=== PATIENT | female | born 1965 | race Hispanic/Latino ===

== ENCOUNTER 2020-12-10 14:48 | Outpatient (CLI) | payer OTHER | END 2020-12-10 14:49 | disposition home or self-care (01) | LOC: CSHRAD 14:48 | PROVIDERS: ATTEND Family Medicine | DX: M25.562 Pain in left knee (principal) ==

== ENCOUNTER 2024-07-19 11:49 | Outpatient (CLI) | payer OTHER | END 2024-07-19 11:50 | disposition home or self-care (01) | LOC: CSHRAD 11:49 | PROVIDERS: ATTEND Family Medicine | DX: R20.0 Anesthesia of skin (principal); M89.9 Disorder of bone, unspecified; M47.812 Spondylosis without myelopathy or radiculopathy, cervical region | CPT/HCPCS: 72050 ==